=== PATIENT | male | born 1990 | race African-American/Black ===

== ENCOUNTER 2021-03-04 09:52 | Emergency (ER) | payer OTHER ==
[2021-03-04 10:12] VITALS: BP 145/74; PULSE 79; TEMP 98.4; BMI 24.3
== END 2021-03-04 12:51 | disposition home or self-care (01) ==
LOC: JERFT 09:52 → JER 09:52 → JERFT 12:51
PROC: 0HQ1XZZ Repair Face Skin, External Approach (ICD-10-PCS; principal; 2021-03-04)
DX: S01.511A Laceration without foreign body of lip, initial encounter (principal); W22.8XXA Striking against or struck by other objects, initial encounter; Z11.52 Encounter for screening for COVID-19
CPT/HCPCS: 99283-25; C9803; U0003; U0005

== ENCOUNTER 2022-02-09 18:08 | Emergency (ER) | payer OTHER ==
[2022-02-09 18:29] VITALS: BP 112/72; PULSE 59; RESP 18; TEMP 98.3; BMI 27.2
== END 2022-02-09 22:55 | disposition home or self-care (01) ==
LOC: JERFT 18:08 → JER 18:08 → JERFT 22:55
PROC: 0HQ0XZZ Repair Scalp Skin, External Approach (ICD-10-PCS; principal; 2022-02-09)
DX: S01.01XA Laceration without foreign body of scalp, initial encounter (principal); Y99.9 Unspecified external cause status
CPT/HCPCS: 70450-TC; 99284-25

== ENCOUNTER 2022-09-14 23:14 | Emergency (ER) | payer OTHER ==
[2022-09-14 23:20] VITALS: BP 113/71; PULSE 64; RESP 18; TEMP 98; BMI 20.7
[2022-09-15] MEDS ORDERED: LIDOCAINE 2.5%/PRILOCAINE 2.5% 30 GRAM TUBE TP ONE (00:15)
[2022-09-15] MEDS ORDERED: LIDOCAINE 2.5%/PRILOCAINE 2.5% (5 Gram/TUBE) TP ONE (00:18)
== END 2022-09-15 02:35 | disposition home or self-care (01) ==
LOC: JER 23:14 → JERFT 23:14 → JER 09-15 02:35
DX: S01.81XA Laceration without foreign body of other part of head, initial encounter (principal); W22.01XA Walked into wall, initial encounter; Y93.89 Activity, other specified; Y92.9 Unspecified place or not applicable
CPT/HCPCS: 70150-TC-FY; 70450-TC; 70486-TC; 99284-25

== ENCOUNTER 2023-03-24 08:09 | Emergency (ER) | payer OTHER ==
[2023-03-24 08:24] VITALS: BP 120/74; PULSE 70; RESP 17; TEMP 98.2; BMI 21.7
[2023-03-24] MEDS ORDERED: DIPHTH,PERTUSS(ACELL),TET 0.5 ML DISP.SYRIN IM ONE (10:15)
[2023-03-24] MEDS: DIPHTH,PERTUSS(ACELL),TET 0.5 ML DISP.SYRIN IM ONE (10:19)
== END 2023-03-24 11:08 | disposition home or self-care (01) ==
LOC: JERFT 08:09
PROC: 0HQ1XZZ Repair Face Skin, External Approach (ICD-10-PCS; principal; 2023-03-24)
PROC: 3E0234Z Introduction of Serum, Toxoid and Vaccine into Muscle, Percutaneous Approach (ICD-10-PCS; 2023-03-24)
DX: S01.511A Laceration without foreign body of lip, initial encounter (principal); W01.0XXA Fall on same level from slipping, tripping and stumbling without subsequent striking against object, initial encounter
CPT/HCPCS: 12013; 90471; 90715; 99282-25

== ENCOUNTER 2023-03-26 09:44 | Emergency (ER) | payer OTHER ==
[2023-03-26 09:56] VITALS: BP 120/70; PULSE 78; RESP 19; TEMP 97.8; BMI 25.7
== END 2023-03-26 10:24 | disposition home or self-care (01) ==
LOC: JERFT 09:44
DX: Z48.00 Encounter for change or removal of nonsurgical wound dressing (principal)
CPT/HCPCS: 99281-25

== ENCOUNTER 2023-04-02 09:14 | Emergency (ER) | payer OTHER ==
[2023-04-02 09:32] VITALS: BP 112/59; PULSE 70; RESP 18; TEMP 98.5; BMI 26.5
== END 2023-04-02 10:42 | disposition home or self-care (01) ==
LOC: JER 09:14 → JERFT 09:14 → JER 10:42
DX: Z48.02 Encounter for removal of sutures (principal)
CPT/HCPCS: 99281-25